=== PATIENT | female | born 1970 | race Two or more races ===

== ENCOUNTER 2019-08-12 07:57 | Day surgery (SDC) | payer OTHER ==
[~2019-08-12] VITALS: Ht 165.1 cm; Wt 109.3 kg
[2019-08-12 08:20] VITALS: BP 119/66
[2019-08-12 18:15] VITALS: BP 120/74
== END 2019-08-12 18:10 | disposition home or self-care (01) ==
LOC: DS 07:57 → MA 09:00 → OR 13:30 → DS 18:10
DX: N63.10 Unspecified lump in the right breast, unspecified quadrant (principal); D24.1 Benign neoplasm of right breast; E66.9 Obesity, unspecified; N20.0 Calculus of kidney; I10 Essential (primary) hypertension; Z68.41 Body mass index [BMI] 40.0-44.9, adult; Z79.899 Other long term (current) drug therapy; Z98.51 Tubal ligation status
CPT/HCPCS: J0690; J1170; J2001; J2250; J2405; J2704; J3010; J3490